=== PATIENT | female | born 1955 ===

== ENCOUNTER 2018-02-19 07:57 | Emergency (ER) | payer SELFPAY ==
[2018-02-19 08:08] VITALS: BP 164/92
[2018-02-19] MEDS ORDERED: FUL-GLO OP ONE (08:22)
[2018-02-19] MEDS ORDERED: TETRACAINE 0.5% OU STA (08:22)
--- NOTE | 2018-02-19 08:23 | Emergency Department Report ---
ED General Adult HPI - General Chief complaint: Eye Problems Stated complaint: PAIN ON EYES Time Seen by Provider: 02/19/18 08:21 Source: patient, RN notes reviewed Mode of arrival: Ambulatory Limitations: No Limitations - History of Present Illness Initial comments: This is a 62-year-old female who is not known to this provider previously, who presents to the ER with a complaint of bilateral eye pain after feeling like an insect flew into her eyes last night. She describes the pain as burning. It does not radiate anywhere. It does not have exacerbating or relieving factors. She reports her glasses broke one month ago and she does not currently wear glasses. She does not wear contact lenses. She denies ocular discharge. She denies subjective change in visual acuity. -: Sudden Location: eyes Radiation: non-radiation Quality: aching Consistency: constant Improves with: none Worsens with: none Associated Symptoms: denies other symptoms - Related Data Previous Rx's Medication Instructions Recorded Last Taken Type Ibuprofen [Motrin] 600 mg PO Q8H PRN #30 tablet 02/19/18 Unknown Rx Mineral Oil/Petrolatum,White 3.5 gm OP Q1HR PRN #5 oint...g. 02/19/18 Unknown Rx [Refresh Lacri-Lube Ointment] Allergies Allergy/AdvReac Type Severity Reaction Status Date / Time No Known Allergies Allergy Verified 02/19/18 08:04 ED Review of Systems ROS: Stated complaint: PAIN ON EYES Other details as noted in HPI Constitutional: denies: fever Eyes: eye pain. denies: eye discharge, vision change ENT: denies: throat pain Respiratory: denies: cough Cardiovascular: denies: chest pain Gastrointestinal: denies: abdominal pain Musculoskeletal: denies: back pain Neurological: denies: headache ED Past Medical Hx - Past Medical History Previous Medical History?: Yes Hx Asthma: Yes - Surgical History Past Surgical History?: Yes Hx Appendectomy: Yes - Social History Smoking Status: Never Smoker Substance Use Type: None - Medications Home Medications: Home Medications Medication Instructions Recorded Confirmed Last Taken Type Ibuprofen [Motrin] 600 mg PO Q8H PRN #30 tablet 02/19/18 Unknown Rx Mineral Oil/Petrolatum,White 3.5 gm OP Q1HR PRN #5 oint...g. 02/19/18 Unknown Rx [Refresh Lacri-Lube Ointment] ED Physical Exam - General Limitations: No Limitations General appearance: alert, in no apparent distress - Head Head exam: Present: atraumatic, normocephalic - Eye Eye exam: Present: normal appearance (there is no fluorescein uptake, there is a negative Rob sign), EOMI, other (visual acuity intact to finger counting, color perception, reading at a close distance). Absent: nystagmus - ENT ENT exam: Present: normal exam, normal orophraynx, mucous membranes moist, normal external ear exam - Neck Neck exam: Present: normal inspection, full ROM. Absent: tenderness, meningismus - Respiratory Respiratory exam: Present: normal lung sounds bilaterally. Absent: respiratory distress - Cardiovascular Cardiovascular Exam: Present: regular rate, normal rhythm, normal heart sounds. Absent: bradycardia, tachycardia, irregular rhythm, systolic murmur, diastolic murmur, rubs, gallop - GI/Abdominal GI/Abdominal exam: Present: soft. Absent: distended, tenderness, guarding, rebound, rigid, pulsatile mass - Extremities Exam Extremities exam: Present: normal inspection, full ROM, other (2+ pulses noted in the bilateral upper, lower extremities. Compartments soft. No long bony tenderness. The pelvis is stable.). Absent: pedal edema, calf tenderness - Back Exam Back exam: Present: normal inspection, full ROM. Absent: tenderness, CVA tenderness (R), paraspinal tenderness, vertebral tenderness - Neurological Exam Neurological exam: Present: alert, oriented X3, CN II-XII intact, normal gait, other (Extraocular movements intact. Tongue midline. No facial droop. Facial sensation intact to light touch in the V1, V2, V3 distribution bilaterally. 5 and 5 strength in 4 extremities.. Sensation is intact to light touch in 4 extremities.). Absent: motor sensory deficit - Psychiatric Psychiatric exam: Present: normal affect, normal mood - Skin Skin exam: Present: warm, dry, intact, normal color. Absent: rash ED Course Vital Signs 02/19/18 08:04 Temperature 99 F Pulse Rate 80 Respiratory 16 Rate Blood Pressure 164/92 O2 Sat by Pulse 100 Oximetry ED Medical Decision Making - Lab Data Vital Signs 02/19/18 08:04 Temperature 99 F Pulse Rate 80 Respiratory 16 Rate Blood Pressure 164/92 O2 Sat by Pulse 100 Oximetry - Medical Decision Making Differential diagnosis, including but not limited to: Ocular foreign body, corneal abrasion, conjunctivitis Assessment and plan: 62-year-old female with left greater than right eye pain. Objectively speaking, visual acuity is intact 20/30 bilaterally, intact to finger counting, color perception, and reading at a close distance, there is no Rob sign, there is no fluorescein uptake, the patient reported no change in her symptoms with application of fluorescein, and she has evidence of bilateral cataract surgery. There does not appear to be an emergent ophthalmologic condition at this time, she does not have evidence of conjunctivitis, she will be started on artificial tears, and referred to local ophthalmology for further outpatient evaluation. Critical care attestation.: If time is entered above; I have spent that time in minutes in the direct care of this critically ill patient, excluding procedure time. ED Disposition Clinical Impression: Ocular pain, bilateral Disposition: [id number] TO HOME OR SELFCARE Is pt being admited?: No Does the pt Need Aspirin: No Condition: Good Instructions: Eye Pain (ED) Additional Instructions: Take the medications as needed/directed. Go to the local ophthalmology clinic as directed for further evaluation. ER right away with you pain, worsened pain , migration of pain, fevers, chills, lethargy, irritability, projectile vomiting , change in mental status, confusion, inability to speak, inability to see. Prescriptions: Ibuprofen [Motrin] 600 mg PO Q8H PRN #30 tablet PRN Reason: Pain Mineral Oil/Petrolatum,White [Refresh Lacri-Lube Ointment] 3.5 gm OP Q1HR PRN # 5 oint...g. PRN Reason: Dry Eye(S) Referrals: EDUARD MORGAN MD [Staff Physician] - 3-5 Days
== END 2018-02-19 10:12 | disposition home or self-care (01) ==
LOC: ED 07:57
DX: H57.13 Ocular pain, bilateral (principal); J45.909 Unspecified asthma, uncomplicated; Z90.49 Acquired absence of other specified parts of digestive tract
CPT/HCPCS: 99282